=== PATIENT | male | born 1965 | race Caucasian/White ===

== ENCOUNTER 2018-03-09 16:00 | Observation (INO) | payer OTHER ==
[2018-03-09] MEDS ORDERED: ONDANSETRON 4 MG/2 ML VIAL IV PRN (17:11)
[2018-03-09] MEDS ORDERED: ALBUTEROL 2.5 MG/3 ML NEB SOL NEB PRN (17:11)
[2018-03-09] MEDS ORDERED: ACETAMINOPHEN 500 MG TAB PO PRN (17:11)
[2018-03-09] MEDS ORDERED: IPRATROPIUM BROM 0.5MG/2.5ML NEB PRN (17:11)
[2018-03-09] MEDS ORDERED: D50W 25 GM/50 ML SYRINGE IV PRN (17:38)
[2018-03-09] MEDS ORDERED: GLUCAGON 1 MG/VIAL IM PRN (17:38)
[2018-03-09 17:43] LABS: Urine Appearance CLEAR; Urine Bilirubin NEGATIVE (NEG); Urine Blood NEGATIVE (NEG); Urine Color YELLOW; Urine Glucose NEGATIVE (NEG); Urine Protein NEGATIVE (NEG); Urine Urobilinogen 0.2 mg/dL (0.2-1.0)
[2018-03-09 17:45] LABS: Urine Microscopic Reflex NO UMIC
[2018-03-09 17:59] LABS: Absolute Lymphocytes (CBC) 1.9 K/uL (0.7-4.9); Absolute Monocytes 0.8 K/uL (0.1-1.3); Absolute Neutrophil 16.5 K/uL (1.8-8.0); Basophils % 0.7 % (0-1.3); Eosinophils % 0.2 % (0-4.4); Hematocrit 39.2 % (39.6-49.0); Lymphocytes % 9.9 % (15.3-44.8); MCH 23.7 pg (27.0-35.0); MPV 7.4 fL (7.6-11.3); Monocytes % 4.1 % (3.3-12.3); RBC Red Blood Cell Count 5.29 M/uL (4.33-5.43)
[2018-03-09] MEDS ORDERED: LEVOFLOXACIN 750 MG IV SCH (18:00)
[2018-03-09 18:10] LABS: Potassium 3.7 mmol/L (3.5-5.1)
[2018-03-09 18:17] VITALS: BMI 33.4
--- NOTE | 2018-03-09 18:37 | HP ---
Date of Admission: 03/09/2018 Primary Care Physician: None. Chief Complaint: Shortness of breath, cough. Direct admission from Dr. Gonzalez's office for possib le aspiration pneumonia. Code Status: Full. History Of Present Illness: The patient is a 52-year-old male with past medical history of diabetes, hypertension, anemia, and likely undiagnosed COPD with a long history of smoking, who quit recently, was at the GI doctor's office for colonoscopy due to anemia. The patient was found to have a polyp; however, after the procedure, the patient had some shortness of breath, cough, and his O2 saturation s apparently were low according to the patient. The patient does report some intermittent cough and sputum production since the procedure. Otherwise, he denies any chest pain, fevers, chills. No ill contacts. The patient was sent directly to the floor for further evaluation. Past Medical History: Diabetes mellitus type 2 non-insulin requiring, hypertension, anemia, likely u ndiagnosed COPD. Past Surgical History: Ankle surgery on the right, back surgery in January for cyst removal. Allergies: TO LEVAQUIN. Medications: List reviewed. Social History: The patient quit smoking 3 years ago, smoked for 30 years. . Works for [employer]. Denies any alcohol use or illicit drug use. Family History: Father of diabetes. Review of Systems: An 11-point system reviewed, except as per HPI. Physical Examination: Vital Signs: Temperature 98.8, heart rate 80, blood pressure 179/73, respirations 18, O2 93% on room air. General: Awake, alert, oriented x3, not in acute distress. Obese male. HEENT: Normocephalic, atraumatic. PERRLA. EOMI. Moist mucous membranes. Oropharynx is clear. Neck: Supple. No JVD. Trachea midline. CV: S1, S2. No murmurs. Regular rate and rhythm. Peripheral pulses present. Respiratory: Clear to auscultation bilaterally. No wheezing. No stridor. No use of accessory musc les. Gastrointestinal: Abdomen is soft, nontender. Some mild distention. Positive bowel sounds. No gua rding or rigidity. Extremities: No clubbing, cyanosis, or edema. No calf tenderness. Neuro: Cranial nerves 2 through 12 intact grossly. No focal neurological deficit. Speech is normal . Strength is 5/5 bilateral upper and lower extremities. Sensation intact to light touch. Skin: No rashes. Normal skin turgor. Psych: Mood is okay. Affect is full. Insight and judgment are good. Laboratory Data: Pending. Imaging Studies: Pending. Assessment And Plan: A 52-year-old male with: 1.Aspiration pneumonia. We will continue on Zosyn, obtain blood cultures and sputum cultures. 2.Likely undiagnosed chronic obstructive pulmonary disease. We will continue with breathing treatme nts and monitor pulse ox continuously. 3.Obesity. 4.Essential hypertension. Resume home medications as appropriate. 5.Diabetes mellitus type 2, non-insulin requiring. We will start on sliding scale insulin. 6.Anemia, status post recent colonoscopy with polypectomy by Dr. Gonzalez. 7.GI and DVT prophylaxis with PPI. No chemical anticoagulation due to recent procedure and anemia. Plan: Admit the patient to Med-Surg, place as inpatient. We will check CBC, CMP, EKG, and chest x-ray. We will likely discharge in a.m. if continues to impro ve. [place] Voice ID: [id number]
--- NOTE | 2018-03-09 18:45 | RAD REPORT ---
EXAM DESCRIPTION: RAD - Chest Pa And Lat (2 Views) - 03/09/2018 6:36 pm CLINICAL HISTORY: Pneumonia COMPARISON: None. TECHNIQUE: PA and lateral views of the chest were obtained. FINDINGS: The lungs are clear of a focal consolidation, mass or failure finding. Interstitial markin gs in the lower lung martin are mildly prominent. Baseline for the patient is unknown. Trachea is mid line. Heart size is normal and central vasculature is within normal limits. No pleural effusion or pneumothorax seen. No acute bony finding noted. No aortic abnormality. IMPRESSION: No acute cardiopulmonary process. Lung base markings are mildly prominent on this baseline study. Without comparison, early interstitia l edema or infiltrate cannot be excluded. No focal consolidation typical for bacterial pneumonia.
[2018-03-09 18:55] LABS: Blood Morphology Comment NOT SEEN (NOT SEEN); Platelet Estimate ADEQ; Urine White Blood Cell Casts OK
[2018-03-09] MEDS: NA CHLORIDE 0.9% 1,000 ML IV SCH (18:57)
[2018-03-09] MEDS: PIPER/TAZO/NS 3.375gm 3.375 GM/100 ML BAG IVPB SCH (18:57)
[2018-03-09] MEDS: INSULIN -REGULAR HUMAN 50 UNIT/0.5 ML ML SQ SCH (20:42)
[2018-03-10] MEDS: PIPER/TAZO/NS 3.375gm 3.375 GM/100 ML BAG IVPB SCH ×2 (01:13→09:29)
[2018-03-10] MEDS: NA CHLORIDE 0.9% 1,000 ML IV SCH ×2 (04:38→14:00)
[2018-03-10] MEDS: INSULIN -REGULAR HUMAN 50 UNIT/0.5 ML ML SQ SCH ×2 (07:30→11:30)
[2018-03-10] MEDS ORDERED: LISINOPRIL 5 MG TAB PO SCH (09:00)
[2018-03-10 12:18] VITALS: BP 143/82; TEMP 98
[2018-03-10 13:02] LABS: Absolute Lymphocytes (CBC) 2.5 K/uL (0.7-4.9); Absolute Monocytes 0.8 K/uL (0.1-1.3); Absolute Neutrophil 6.5 K/uL (1.8-8.0); Basophils % 0.6 % (0-1.3); Eosinophils % 2.1 % (0-4.4); Hematocrit 33.6 % (39.6-49.0); Lymphocytes % 24.6 % (15.3-44.8); MCH 24.3 pg (27.0-35.0); MCV 74.1 fL (80-100); MPV 6.9 fL (7.6-11.3); Monocytes % 7.6 % (3.3-12.3); RBC Red Blood Cell Count 4.54 M/uL (4.33-5.43)
[2018-03-10 13:32] LABS: Bilirubin Total 0.3 mg/dL (0.2-1.0); Protein, Total 7.3 g/dL (6.4-8.2)
[2018-03-10 14:23] VITALS: O2SAT 94
--- NOTE | 2018-03-10 18:15 | DS ---
Discharge Diagnoses: 1.? aspiration pneumonia versus bronchitis. 2.Overweight. 3.Hypertension. 4.Microcytic anemia. 5.Borderline hyperglycemia versus diabetes. For history of present illness, please refer to Dr. Parkinson's note. Consult: None. Procedure: X-ray done on the day of admission, showed lung base markings were mildly prominent on th e baseline study without compression and interstitial edema, a filtrate cannot be excluded. There wa s no sign of bacterial pneumonia. Hospital Course: Initially, the patient was admitted from Dr. Gonzalez's office after colonoscopy do ne for evaluation of anemia. Postprocedure, patient started to have a severe bout of cough and Dr. Elan reynolds was worried about aspiration pneumonia. He was sent to admission. White blood cells on admi ssion were 19,000. X-ray was inconclusive. The patient was started on IV antibiotic with Zosyn. Hi s white blood cells went down to 10,000 today. He was not short of breath. He has not had any more cough. We will discharge him home empirically on oral antibiotic with Levaquin 500 mg for 10 days. He is to follow up with his primary care physician in 1 week. We will resume his home medication for blood pressure. He will also need to get evaluated for his borderline hyperglycemia and start on me dication if needed for possible diabetes, but that to be done as outpatient. He was recommended to l ose weight and be on diet, and he will be discharged in stable condition. Discharge Condition: Stable. Discharged Diet: Cardiac. Discharge Followups: Primary care physician this week. Discharge Activity: As tolerated. Discharge Medications: Levaquin 500 mg orally once a day for 10 days. Naproxen 220 mg as needed helen ry 8 hours, lisinopril 5 mg orally once a day. Discharge Physical Examination: Vital Signs: Blood pressure is 143/82, respiratory rate 18, pulse 7 4, temperature 98. General: The patient is alert and oriented x3. Does not look in any distress. HEENT: Atraumatic, normocephalic. PERRLA. Oral mucosa is moist. Neck: Supple. No JVD. No carotid bruits. Chest: Clear to auscultation. Good air entry. Heart: Regular rate and rhythm S1, S2 normal. No gallop or murmur. Abdomen: Soft, nontender. No masses. No hepatosplenomegaly. Obese. Positive bowel sound. Extremities: No clubbing, cyanosis, or edema. No calf tenderness. LEWIS/TANK Voice ID: [id number] Report ID: [id number]
--- NOTE | 2018-03-13 06:53 | EKG ---
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
== END 2018-03-10 15:21 | disposition home or self-care (01) ==
LOC: 4TH 16:55
PROVIDERS: ADMIT Family Medicine; ATTEND Internal Medicine
DX: R05 Cough (principal); E66.3 Overweight; I10 Essential (primary) hypertension; D50.9 Iron deficiency anemia, unspecified; R73.9 Hyperglycemia, unspecified; R91.8 Other nonspecific abnormal finding of lung field; Z87.891 Personal history of nicotine dependence; Z68.33 Body mass index [BMI] 33.0-33.9, adult
CPT/HCPCS: 36415; 71046; 80048; 80053; 81003; 82962; 85025; 87040; 87077; 87086; 87088; 87186; 93005; G0378; J2543; J7030